=== PATIENT | male | born 1945 | race Caucasian/White ===

== ENCOUNTER 2020-07-28 10:46 | Outpatient (CLI) | payer MEDICARE, SELFPAY ==
--- NOTE | 2020-07-28 10:59 | XR_ITS ---
WS: [id number] Exam: XR chest 2V* [id number] Date/Time of Exam: 07/28/2020 11:10 AM Reason For Exam: dyspnea - rule out pneumonia No priors. The lungs are hyperinflated and clear. Unremarkable cardiomediastinal silhouette. Regional bony eleme nts are intact. No pleural effusions. XR/XR chest 2V* [id number] IMPRESSION: 1. Pulmonary hyperinflation. No acute process.
== END 2020-07-28 10:47 | disposition home or self-care (01) ==
PROVIDERS: Visit Provider Internal Medicine Pulmonary Disease
DX: R06.00 Dyspnea, unspecified (principal)
CPT/HCPCS: 71046

== ENCOUNTER 2021-02-01 00:06 | Inpatient (IN) | payer MEDICARE, SELFPAY ==
[2021-02-01] VITALS (19 sets, daily range): BP systolic 131–193; BP diastolic 60–88; PULSE 70–118; RESP 14–178; TEMP 36.8–37.3; O2SAT 89–98; BMI 40.6; BMI 40.0
--- NOTE | 2021-02-01 00:09 | ECG_ITS ---
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
--- NOTE | 2021-02-01 00:09 | XRR_ITS ---
PROCEDURE INFORMATION: Exam: XR Chest Exam date and time: 02/01/2021 12:09 AM Age: 75 years old Clinical indication: Dyspnea; Additional info: SOB TECHNIQUE: Imaging protocol: XR of the chest. Views: 1 view. COMPARISON: CR XR chest 2V* [id number] 07/28/2020 11:12 AM FINDINGS: Lungs: There is a background of emphysema and mild pulmonary fibrosis. There is mild prominence and indistinctness of the pulmonary vasculature. There are some increased peribronchial markings present bilaterally and some increased interstitial opacity seen in the lower hemithoraces, findings could represent mild pulmonary edema. Pleural spaces: Unremarkable. No pleural effusion. No pneumothorax. Heart/Mediastinum: Unremarkable. No cardiomegaly. Bones/joints: Unremarkable. XR/XR chest 1V portable [id number] IMPRESSION: 1. Mild prominence and indistinctness of the pulmonary vasculature, mild peribronchial cuffing and increased interstitial opacities in the lower hemithoraces, findings that suggest pulmonary edema. 2. There is a background of emphysema and pulmonary fibrosis. Radiation Dose CTDIVOL = (mGy): DLP = (mGy-cm)
--- NOTE | 2021-02-01 00:29 | W.ED.SOB ---
HPI - SOB/Dyspnea General: Chief Complaint: Shortness of Breath/Dyspnea Stated Complaint: sob Source: patient Mode of arrival: ambulatory Limitations: no limitations History of Present Illness: HPI Narrative: 75-year-old male has known history of COPD states he stepped on 2 L oxygen at home he states he is having increased shortness of breath tonight he states he has had cough congestion and increasing shortness of breath\3 days. Much worse tonight. He states he was on multiple breathing treatments with no improvement EMS arrived had to turn his oxygen up to 3%. He denies any fever denies any chest pain. Denies any sick contacts. Associated symptoms: Deny abdominal pain, chest pain, fever(s), nausea or vomiting Review of Systems Const: Denies: fever(s), chills, body aches or change in appetite Eyes: Denies: blurry vision or eye discomfort ENMT: Denies: throat pain or dental pain Card: Denies: chest pain Resp: Reports: dyspnea, non-productive cough and wheezing GI: Denies: abdominal pain, nausea, vomiting or diarrhea : Denies: dysuria Musc: Denies: neck pain or back pain Skin/Breast: Denies: rash Neuro: Denies: headache(s) Psych: Denies: depression Delgado/Lymph: Denies: easy bruising All/Imm: Denies: urticaria PFSH ED PFSH: Medical History 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 Dyspnea Emphysema/COPD Right-sided abdominal pain of unknown etiology Right-sided thoracic back pain Surgical History H/O left knee surgery History of back surgery Family History Mother Cancer Social History Quit status (tobacco): has quit using tobacco Year quit tobacco: 2007 [id number] Second hand smoke exposure: Yes Smoking risk assessment/counseling performed?: Yes Alcohol intake: former Caregiver/support person: No Lives independently: Yes Household members: significant other and friend(s) Housing: House Marital status: service: No Current occupational status: retired Pets and animals: Yes History of recent travel: No Current gender identity: Male Physical Exam Const: COMMON NORMALS: no acute distress, patient oriented x3 and healthy appearing HENMT: COMMON NORMALS: normocephalic and atraumatic HEAD & SCALP: normocephalic and atraumatic Eye: COMMON NORMALS: Equal, round and reactive pupils present and EOMs intact bilaterally PUPIL: Yes Equal, round and reactive pupils present Neck/C-Spine: COMMON NORMALS: full ROM and supple Chest: COMMONS NORMALS: normal inspection of the chest and normal palpation of entire chest wall Resp: COMMON NORMALS: No retractions EFFORT & INSPECTION: Yes tachypneic AUSCULTATION: wheezes Cardio: COMMON NORMALS: regular rate, regular rhythm and No murmurs present (Cardio) RATE: regular rate RHYTHM: regular rhythm GI: COMMON NORMALS: Normal to inspection, nondistended, normoactive bowel sounds present, Soft to palpation, non-tender and no masses PALPATION: Yes Soft to palpation Extremity: COMMON NORMALS: normal to inspection and full ROM Neuro: COMMON NORMALS: patient oriented x3, moves all extremities and no focal motor deficits Psych: COMMON NORMALS: mental status grossly normal, Normal thought process present and cooperative THOUGHT PROCESS: Normal thought process present Skin: COMMON NORMALS: no rashes or lesions noted and no wounds GENERAL SKIN EXAM: no rashes or lesions noted Course Vital Signs: Vital signs: Vital Signs Temperature 99.2 F 02/01/21 00:06 Pulse Rate 95 02/01/21 02:19 Respiratory Rate 20 H 02/01/21 02:19 Blood Pressure 181/88 02/01/21 02:19 Pulse Oximetry 96 02/01/21 02:19 MDM - SOB/Dyspnea MDM Narrative: Medical decision making narrative: Patient presents here with a COPD exacerbation he did have hypercapnia which required BiPAP he is improving on BiPAP no signs of pneumonia spoke to hospitalist and will admit at this time. Lab Data: Labs: Lab Results 02/01/21 02/01/21 02/01/21 00:42 00:45 00:45 WBC 12.2 10^3/uL H 10 ^3/uL (4.0-10.0) RBC 4.53 10^6/uL 10^6 /uL (4.1-5.3) Hgb 13.3 g/dL g/dL (11.7-16.6) Hct 43.3 % % (42.0-52.0) MCV 95.6 fl H fl (80-94) MCH 29.4 pg pg (28.0-34.0) MCHC 30.7 g/dL g/dL (30.0-36.0) RDW 12.7 % % (12.1-15.1) Plt Count 260 10^3/cmm 10^3 /cmm (130-400) MPV 10.0 fL fL (7.4-10.4) Neut % (Auto) 72.3 % % Lymph % (Auto) 13.2 % % Independence % (Auto) 13.1 % % Eos % (Auto) 0.4 % % Baso % (Auto) 0.6 % % Neut # (Auto) 8.80 10^3/uL H 10 ^3/uL (1.8-7.7) Lymph # (Auto) 1.6 10^3/uL 10^3/ uL (0.8-4.8) Independence # (Auto) 1.6 10^3/uL H 10^ 3/uL (0.2-0.9) Eos # (Auto) 0.1 10^3/uL 10^3/ uL (0.0-0.8) Baso # (Auto) 0.1 10^3/uL 10^3/ uL (0.0-0.1) Nucleated RBC % (a uto) 0 % % Nucleated RBCs # 0.0 /100WBC /100W BC Specimen Type Arterial Sample Site Radial, left ABG pH 7.24 L (7.35-7.45) ABG pCO2 80.1 mmHg H* mmHg (35-45) ABG pO2 96.9 mmHg mmHg (80.0-100.0) ABG HCO3 34.0 mmol/L H mmo l/L (22-26) ABG Base Excess 3.9 mmol/L H mmol /L (-2.0-2.0) Freeman Test Pos Hematocrit 41.7 % L % (42-52) Hgb O2 Saturation 95.6 % % (95-100) Carboxyhemoglobin 1.1 %THgb %THgb (0.4-20.1) Methemoglobin 0.6 % % (0.4-1.5) Total Hemoglobin 13.6 g/dL L g/dL (14-18) O2 Delivery Device Nc O2 Liters/Min 6.0 % % FiO2 44.0 % % Brine Tank Separator Operator ID glc Blood Gas Notified Time Sodium 139 mmol/L mmol/L (136-145) Potassium 4.2 mmol/L mmol/L (3.5-5.1) Chloride 98 mmol/L mmol/L (98-107) Carbon Dioxide 32 mmol/L H mmol/ L (22-29) Anion Gap 13.2 (5-19) BUN 18 mg/dL mg/dL (8-23) Creatinine 0.8 mg/dL mg/dL (0.7-1.2) GFR Calculation Not Reportable Glucose 165 mg/dL H mg/dL (65-115) Calculated Osmolal ity 294 mOsm/kg mOsm/ kg (285-295) Calcium 9.6 mg/dL mg/dL (8.5-10.5) Total Bilirubin 0.4 mg/dL mg/dL (0.15-1.2) AST 16 U/L U/L (0-40) ALT 29 U/L U/L (0-41) Alkaline Phosphata se 78 IU/L IU/L (40-130) NT-Pro-B Natriuret Pep 153 pg/mL H pg/mL (0-125) Total Protein 7.3 g/dL g/dL (6.6-8.7) Albumin 3.9 g/dL g/dL (3.5-5.2) Globulin 3.4 g/dL g/dL (1.3-4.6) SARS-CoV-2 Ag (Rap id) 02/01/21 02/01/21 01:10 02:08 WBC RBC Hgb Hct MCV MCH MCHC RDW Plt Count MPV Neut % (Auto) Lymph % (Auto) Independence % (Auto) Eos % (Auto) Baso % (Auto) Neut # (Auto) Lymph # (Auto) Independence # (Auto) Eos # (Auto) Baso # (Auto) Nucleated RBC % (a uto) Nucleated RBCs # Specimen Type Arterial Sample Site Radial, right ABG pH 7.26 L (7.35-7.45) ABG pCO2 74.3 mmHg H* mmHg (35-45) ABG pO2 117.0 mmHg H mmHg (80.0-100.0) ABG HCO3 33.5 mmol/L H mmo l/L (22-26) ABG Base Excess 3.9 mmol/L H mmol /L (-2.0-2.0) Freeman Test Pos Hematocrit 42.9 % % (42-52) Hgb O2 Saturation Carboxyhemoglobin Methemoglobin Total Hemoglobin O2 Delivery Device Bipap O2 Liters/Min FiO2 40.0 % % Brine Tank Separator Operator ID glc Blood Gas Notified Time 023 Sodium Potassium Chloride Carbon Dioxide Anion Gap BUN Creatinine GFR Calculation Glucose Calculated Osmolal ity Calcium Total Bilirubin AST ALT Alkaline Phosphata se NT-Pro-B Natriuret Pep Total Protein Albumin Globulin SARS-CoV-2 Ag (Rap id) Negative (Negative) Imaging Data^: CXR: Attestation: I personally reviewed and interpreted this imaging study as follows: My impression: no acute abnormality EKG Data^: EKG 1: Attestation: I personally reviewed and interpreted this EKG as follows: EKG Interpretation Date: 02/01/21 EKG interpretation time: : Interpretation: nsr hr [address] or t wave abnormalities [id number] qtc 380 Critical Care Time Critical Care Time: Critical Care Time: Yes Total Critical Care Time: 35 Attestation: The high probability of a clinically significant, sudden or life threatening deterioration of the patient's [] system(s) required my full and direct attention, intervention and personal management. The critical care time is as shown. This time is in addition to time spent performing any reported procedures but includes the following: [x] Data and vital sign review and interpretation [x] Patient assessment, examination and intervention [x] Documentation [x] Medication orders and management Discharge Plan Discharge Patient Disposition: Admitted As Inpatient Clinical Impression: Acute exacerbation of chronic obstructive airways disease Condition: Stable Coding Level of Care Code ED Religion Professor for Chg Fwd Exam Comprehensive
[2021-02-01 00:51] LABS: ABG PH Result 7.24 (7.35-7.45); Arterial Blood Gas Hematocrit 41.7 % (42-52); Base Excess ABG 3.9 mmol/L (-2.0-2.0); Blood Gas Allen Test Pos; Blood Gas Operator Identificat glc; Blood Gas Sample Site Radial, left; Blood Gas Sample Type Arterial; Carboxyhemoglobin 1.1 %THgb (0.4-20.1); HGB O2 Sat 95.6 % (95-100); Methemoglobin 0.6 % (0.4-1.5); Oxygen Device NC; PO2 ABG 96.9 mmHg (80.0-100.0); Total Hemoglobin 13.6 g/dL (14-18)
[2021-02-01 00:52] LABS: ABG PCO2 80.1 mmHg (35-45)
[2021-02-01 01:13] LABS: Basophils # 0.1 10^3/uL (0.0-0.1); Basophils % 0.6 %; Eosinophils # 0.1 10^3/uL (0.0-0.8); Eosinophils % 0.4 %; Hematocrit 43.3 % (42.0-52.0); Hemoglobin 13.3 g/dL (11.7-16.6); Lymphocytes # 1.6 10^3/uL (0.8-4.8); Lymphocytes % 13.2 %; Mean Corpuscular HGB Conc 30.7 g/dL (30.0-36.0); Mean Corpuscular Hemoglobin 29.4 pg (28.0-34.0); Mean Corpuscular Volume 95.6 fl (80-94); Monocytes # 1.6 10^3/uL (0.2-0.9); Monocytes % 13.1 %; Neutrophils % 72.3 %; Nucleated Red Blood Cells % 0 %; Platelet Count 260 10^3/cmm (130-400); Red Blood Count 4.53 10^6/uL (4.1-5.3); Red Cell Distribution Width 12.7 % (12.1-15.1); White Blood Count 12.2 10^3/uL (4.0-10.0)
[2021-02-01 01:30] LABS: SARS Covid-2 Antigen Negative (Negative)
[2021-02-01 01:37] LABS: Alanine Aminotransferase 29 U/L (0-41); Albumin Level 3.9 g/dL (3.5-5.2); Alkaline Phosphatase 78 IU/L (40-130); Anion Gap 13.2 (5-19); Aspartate Amino Transferase 16 U/L (0-40); Blood Urea Nitrogen 18 mg/dL (8-23); Calcium 9.6 mg/dL (8.5-10.5); Carbon Dioxide 32 mmol/L (22-29); Chloride 98 mmol/L (98-107); Globulin 3.4 g/dL (1.3-4.6); Glucose 165 mg/dL (65-115); NT Pro B Type Natriuretic Pept 153 pg/mL (0-125); Osmolality Calculated 294 mOsm/kg (285-295); Potassium 4.2 mmol/L (3.5-5.1); Sodium 139 mmol/L (136-145); Total Bilirubin 0.4 mg/dL (0.15-1.2); Total Protein 7.3 g/dL (6.6-8.7)
[2021-02-01 02:17] LABS: ABG PH Result 7.26 (7.35-7.45); Arterial Blood Gas Hematocrit 42.9 % (42-52); Base Excess ABG 3.9 mmol/L (-2.0-2.0); Blood Gas Allen Test Pos; Blood Gas Operator Identificat glc; Blood Gas Sample Site Radial, right; Blood Gas Sample Type Arterial; HCO3 ABG 33.5 mmol/L (22-26); Oxygen Device BIPAP
[2021-02-01 02:22] LABS: ABG PCO2 74.3 mmHg (35-45)
--- NOTE | 2021-02-01 07:03 | PC.NURSE ---
Introduced myself to the patient.
--- NOTE | 2021-02-01 08:07 | PC.PHAR ---
pt states he takes care of his own medications-pt verified medications
[2021-02-01] MEDS: D5-NS 0.45% + KCL 20 mEq 20 MEQ/1,000 ML BAG 125 MEQ IV (08:38)
--- NOTE | 2021-02-01 08:46 | P.HP_ITS ---
Providers/Chief Complaint Admitting Physician: Bob Biswas MD Chief Complaint: sob History of Present Illness Anil Worley is a 75 year old male who presents to the hospital with 3 days of cough, shortness of breath. He reports he has some chest discomfort on the right when he coughs hard. He has been producing some sputum. He has had no vomiting or diarrhea. He denies any personal history of Covid, Covid vaccination, or exposure to anybody with Covid. He reports he normally uses 1 L of oxygen but has had to increase to 3 L lately. He was placed on BiPAP in the emergency department. He received Solu-Medrol 125 mg IV in route. I believe he received some terbutaline or indoor albuterol as well. He reports he is feeling better. Review of Systems General: Reports: 10 or more systems reviewed and unremarkable except in HPI and below Const: Denies: fever(s) or chills Eyes: Denies: change in vision ENMT: Denies: throat pain Card: Reports: chest pain Resp: Reports: dyspnea and productive cough GI: Denies: abdominal pain : Denies: flank pain Musc: Denies: neck pain Skin/Breast: Denies: rash Neuro: Denies: headache(s) Psych: Denies: anxiety or depression Endo: Denies: polyuria Delgado/Lymph: Denies: easy bruising All/Imm: Denies: urticaria Medications/Allergies Home Medications Medication Instructions Recorded Confirmed Last Taken Type albuterol sulfate 90 mcg/actuation 2 puff INHALATION Q6H PRN 07/28/20 02/01/21 Unknown History aerosol inhaler budesonide 0.5 mg/2 mL suspension 0.5 mg INHALATION BID 07/28/20 02/01/21 Unknown History for nebulization albuterol sulfate 2.5 mg INHALATION Q4H PRN #90 ml 10/15/20 02/01/21 Unknown Rx fluticasone 250 mcg-salmeterol 50 1 inh INHALATION BID #60 ea 01/20/21 02/01/21 Unknown Rx mcg/dose blistr powdr for inhalation amlodipine 5 mg PO DAILY@18 02/01/21 02/01/21 Unknown History aspirin [Aspir-81] 81 mg PO DAILY@18 02/01/21 02/01/21 Unknown History gabapentin 300 mg PO TID 02/01/21 02/01/21 Unknown History ibuprofen 400 mg PO QID PRN 02/01/21 02/01/21 Unknown History oxycodone-acetaminophen 1 tab PO QID PRN 02/01/21 02/01/21 Unknown History Allergies Allergy/AdvReac Type Severity Reaction Status Date / Time Iodine and Iodide Containing Allergy Unknown Verified 02/01/21 08:07 Produc PFSH Acute PFSH: Medical History 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 Dyspnea Emphysema/COPD Right-sided abdominal pain of unknown etiology Right-sided thoracic back pain Surgical History H/O left knee surgery History of back surgery Family History Mother Cancer Social History Quit status (tobacco): has quit using tobacco Year quit tobacco: 2007 [id number] Second hand smoke exposure: Yes Smoking risk assessment/counseling performed?: Yes Alcohol intake: former Caregiver/support person: No Lives independently: Yes Household members: significant other and friend(s) Housing: House Marital status: service: No Current occupational status: retired Pets and animals: Yes History of recent travel: No Current gender identity: Male Vitals/I&O/Wt Last Vital Signs Temp 99.2 F 02/01/21 00:06 Pulse 97 02/01/21 06:07 Resp 22 H 02/01/21 04:13 BP 141/84 02/01/21 04:13 Pulse Ox 95 02/01/21 06:07 Weight last 48 hrs Weight 124.738 kg Physical Exam Narrative: EXAM NARRATIVE: General exam is a white male, on BiPAP, who is difficult to understand secondary to this. HEENT: Pupils equally round. Oropharynx clear. Neck is supple no lymphadenopathy thyromegaly Cardiovascular regular rate and rhythm, no murmur Lungs diminished breath sounds bilaterally but no wheezes Abdomen is soft with positive bowel sounds. No obvious organomegaly exam is deferred Extremities no cyanosis clubbing or edema, cap refill brisk Skin no rash Neuro no obvious focal deficits. Data : 02/01/21 00:45 02/01/21 00:45 Other data: Initial ABG demonstrates pH 7.26, PCO2 74, PO2 of 117 on BiPAP with 40% FiO2. This is slightly improved from previous ABG CMP demonstrates normal LFTs Glucose elevated 165 BNP 153 Rapid Covid negative Chest x-ray demonstrated vascular prominence, question pulmonary edema. Background emphysema is noted EKG demonstrates sinus rhythm, left axis deviation, nonspecific ST-T wave depression/flattening V3 through 6, rate of 99 A&P Assessment and plan (1) Acute exacerbation of chronic obstructive airways disease: IV steroids Pulmonary toilet Associated with acute hypoxic respiratory failure requiring BiPAP. Wean BiPAP as tolerated. I discussed not smoking with the patient. Status: Acute (2) Acute bronchitis: Doxycycline 100 mg twice daily Check Covid PCR, rapid negative Status: Acute (3) Chest pain: Check troponin. I suspect this is musculoskeletal. He reports that his with coughing. Status: Acute (4) HTN (hypertension): Continue Norvasc Status: Acute Qualifiers: Hypertension type: unspecified Qualified Code(s): I10 - Essential (primary) hypertension (5) Hyperglycemia: Check hemoglobin A1c Status: Acute Additional A&P Information Tobacco dependency. Encouraged him not to smoke. History of chronic neuropathic pain. On Neurontin. Full code Lovenox for DVT prophylaxis Attestations Medical Necessity Statement*: Will need greater than 2 midnight stay secondary to acute COPD exacerbation with acute respiratory failure requiring BiPAP. Time Spent in Patient Care: Greater than 35 minutes Coding Level of Care Code Acute Human Resources Operations Manager for [facility] Fwd Diagnoses Acute exacerbation of chronic obstructive airways disease J44.1 Acute bronchitis J20.9 Chest pain R07.9 HTN (hypertension) I10 Hypertension type: unspecified Hyperglycemia R73.9
--- NOTE | 2021-02-01 08:51 | PC.NURSE ---
Pt refused to let me swab the other nostril. Per provider, water was provided.
[2021-02-01] MEDS: gabapentin 300 mg Capsule PO ×3 (09:27→21:17)
[2021-02-01] MEDS: enoxaparin 40 mg/0.4 mL Syringe SUBCUT (09:28)
[2021-02-01] MEDS: doxycycline 100 mg Tablet PO ×2 (09:28→21:17)
[2021-02-01] MEDS: budesonide 0.5 mg/2 mL Neb INHALATION ×2 (09:31→21:18)
[2021-02-01 09:32] LABS: Troponin T (5th) Once 9 ng/L (0-15)
--- NOTE | 2021-02-01 09:32 | PC.NURSE ---
Pt vitals are: 141/61, 94 HR, 21 RR, 96% BIPAP 98.7 temp
[2021-02-01 09:53] LABS: Estmated Average Glucose 114; Hemoglobin A1C 5.6 % (4.0-6.0)
--- NOTE | 2021-02-01 11:17 | PC.NURSE ---
this nurse stopped the potassium infusion and flushed with 10 ml before and after administeration.
[2021-02-01] MEDS: ipratropium-albuterol 3 mL Neb INHALATION ×3 (12:45→21:18)
--- NOTE | 2021-02-01 16:11 | PC.RESP ---
PULMONARY REHAB INFORMATION SENT TO PATIENT.
--- NOTE | 2021-02-01 16:12 | PC.RESP ---
PULMONARY REHAB INFORMATION SENT TO PATIENT.
--- NOTE | 2021-02-01 18:03 | PC.NURSE ---
Called and gave report to Trish ZAMORA.
[2021-02-01] MEDS: aspirin 81 mg EC Tablet PO (21:17)
[2021-02-01] MEDS: amlodipine 5 mg Tablet PO (21:17)
--- NOTE | 2021-02-01 23:41 | PC.NURSE ---
ivp solumedrol for primary nurse
[2021-02-02] VITALS (17 sets, daily range): BP systolic 118–184; BP diastolic 64–87; PULSE 73–93; RESP 16–21; TEMP 36.4–36.7; O2SAT 86–98
[2021-02-02] MEDS: ipratropium-albuterol 3 mL Neb INHALATION ×6 (04:31→20:13)
[2021-02-02 06:20] LABS: Basophils % 0.1 %; Hematocrit 40.3 % (42.0-52.0); Hemoglobin 12.5 g/dL (11.7-16.6); Lymphocytes # 0.7 10^3/uL (0.8-4.8); Lymphocytes % 6.8 %; Mean Corpuscular Hemoglobin 29.8 pg (28.0-34.0); Mean Corpuscular Volume 96.2 fl (80-94); Mean Platelet Volume 10.2 fL (7.4-10.4); Monocytes # 0.5 10^3/uL (0.2-0.9); Monocytes % 5.2 %; Neutrophils # 8.75 10^3/uL (1.8-7.7); Neutrophils % 87.4 %; Nucleated Red Blood Cells % 0 %; Platelet Count 306 10^3/cmm (130-400); Red Blood Count 4.19 10^6/uL (4.1-5.3); Red Cell Distribution Width 12.5 % (12.1-15.1)
[2021-02-02 06:48] LABS: Alanine Aminotransferase 24 U/L (0-41); Albumin Level 3.6 g/dL (3.5-5.2); Alkaline Phosphatase 66 IU/L (40-130); Anion Gap 13.1 (5-19); Aspartate Amino Transferase 17 U/L (0-40); Blood Urea Nitrogen 30 mg/dL (8-23); Calcium 9.6 mg/dL (8.5-10.5); Carbon Dioxide 31 mmol/L (22-29); Chloride 100 mmol/L (98-107); Globulin 3.3 g/dL (1.3-4.6); Glucose 185 mg/dL (65-115); Osmolality Calculated 299 mOsm/kg (285-295); Potassium 5.1 mmol/L (3.5-5.1); Sodium 139 mmol/L (136-145); Total Bilirubin 0.3 mg/dL (0.15-1.2); Total Protein 6.9 g/dL (6.6-8.7)
[2021-02-02] MEDS: enoxaparin 40 mg/0.4 mL Syringe SUBCUT (07:47)
[2021-02-02] MEDS: doxycycline 100 mg Tablet PO ×2 (07:48→18:12)
[2021-02-02] MEDS: gabapentin 300 mg Capsule PO ×3 (07:48→21:34)
[2021-02-02] MEDS: budesonide 0.5 mg/2 mL Neb INHALATION ×2 (08:18→20:13)
--- NOTE | 2021-02-02 09:18 | P.PN_ITS ---
Subjective Subjective: Interval history: Anil reports he feels better than he did on admission, but is still having some shortness of breath. Still wheezing, especially when he takes the BiPAP off. He is still on BiPAP this morning. Medications: Reviewed: Yes Vitals/I&O/Wt Last Vital Signs Temp 97.6 F 02/02/21 08:00 Pulse 92 02/02/21 08:22 Resp 18 02/02/21 08:22 BP 118/64 02/02/21 08:00 Pulse Ox 86 L 02/02/21 08:22 02/01/21 02/02/21 02/02/21 22:59 06:59 14:59 Intake Total 440 / 1156.667 Output Total 860 / 860 Balance -420 / 296.667 Weight last 48 hrs Weight 119.476 kg Weight 124.738 kg Physical Exam Narrative: EXAM NARRATIVE: General exam is a white male, on BiPAP, Neck is supple no lymphadenopathy thyromegaly Cardiovascular regular rate and rhythm, no murmur Lungs a few bilateral lower lobe wheezes Abdomen is soft with positive bowel sounds. No obvious organomegaly Extremities no cyanosis clubbing or edema, cap refill brisk Data : 02/02/21 06:05 02/02/21 06:05 A&P Assessment and plan (1) Acute exacerbation of chronic obstructive airways disease: Continue IV steroids Continue pulmonary toilet Associated with acute hypoxic respiratory failure requiring BiPAP. Wean BiPAP off as tolerated. Try to keep saturation 88 to 92% I discussed not smoking with the patient. Status: Acute (2) Acute bronchitis: Continue doxycycline 100 mg twice daily Await Covid PCR, rapid negative Status: Acute (3) Chest pain: Check troponin. I suspect this is musculoskeletal. He reports that his with coughing. Troponin was not elevated Status: Acute (4) HTN (hypertension): Continue Norvasc Status: Acute Qualifiers: Hypertension type: unspecified Qualified Code(s): I10 - Essential (primary) hypertension (5) Hyperglycemia: Check hemoglobin A1c. Hemoglobin A1c was not elevated Status: Acute Additional A&P Information Tobacco dependency. Encouraged him not to smoke. History of chronic neuropathic pain. On Neurontin. Full code Lovenox for DVT prophylaxis Attestations Medical Necessity Statement*: Needs continued hospitalization for further IV steroids, pulmonary toilet secondary to COPD exacerbation. Coding Level of Care Code Acute Paving Supervisor for [facility] Fwd Diagnoses Acute exacerbation of chronic obstructive airways disease J44.1 Acute bronchitis J20.9 Chest pain R07.9 HTN (hypertension) I10 Hypertension type: unspecified Hyperglycemia R73.9
[2021-02-02 15:31] LABS: Coronavirus Test Green County Not Detected
[2021-02-02] MEDS: amlodipine 5 mg Tablet PO (18:12)
[2021-02-02] MEDS: aspirin 81 mg EC Tablet PO (18:12)
[2021-02-03] VITALS (17 sets, daily range): BP systolic 146–157; BP diastolic 61–85; PULSE 63–86; RESP 12–22; TEMP 36.3–37.6; O2SAT 93–99
[2021-02-03] MEDS: ipratropium-albuterol 3 mL Neb INHALATION ×7 (00:25→23:30)
[2021-02-03] MEDS: budesonide 0.5 mg/2 mL Neb INHALATION ×2 (07:37→19:26)
[2021-02-03] MEDS: enoxaparin 40 mg/0.4 mL Syringe SUBCUT (08:15)
[2021-02-03] MEDS: gabapentin 300 mg Capsule PO ×3 (08:16→21:21)
[2021-02-03] MEDS: doxycycline 100 mg Tablet PO ×2 (08:16→17:12)
--- NOTE | 2021-02-03 13:58 | PM.PN ---
Subjective Subjective: Interval history: Anil reports he is better but still wheezing. Still some shortness of breath with any exertion. Used BiPAP again last night. He reports it is very effective to helping him rest, breathe better. Nursing put this back on him when he started having lethargy and twitching consistent with hypercarbia yesterday afternoon. Patient has interest in continuing treatment at discharge at night and as needed during the day. I think this could help him substantially, and reduce his hospitalizations. I discussed this with him in detail. Medications: Reviewed: Yes Vitals/I&O/Wt Last Vital Signs Temp 98.1 F 02/03/21 12:00 Pulse 63 02/03/21 12:00 Resp 22 H 02/03/21 12:00 BP 146/76 02/03/21 12:00 Pulse Ox 94 02/03/21 12:00 02/02/21 02/03/21 02/03/21 22:59 06:59 14:59 Output Total 150 / 150 800 / 950 Balance -150 / -150 -800 / -950 Weight last 48 hrs Weight 119.476 kg Physical Exam Narrative: EXAM NARRATIVE: General exam is a white male, mild respiratory distress off BiPAP on oxygen Neck is supple no lymphadenopathy thyromegaly Cardiovascular regular rate and rhythm, no murmur Lungs a few bilateral lower lobe wheezes Abdomen is soft with positive bowel sounds. No obvious organomegaly Extremities no cyanosis clubbing or edema, cap refill brisk Data : 02/02/21 06:05 02/02/21 06:05 A&P Assessment and plan (1) Acute exacerbation of chronic obstructive airways disease: Change IV steroids to p.o. Continue pulmonary toilet Associated with acute hypoxic respiratory failure requiring BiPAP. Wean BiPAP off as tolerated. Try to keep saturation 88 to 92% I believe he could have excellent benefit from BiPAP while sleeping, and as needed during the day. He had significant hypercarbia when he came in associated with respiratory acidosis. There is evidence that he has chronic respiratory failure and hypercarbia from his laboratory evaluation. BiPAP at home could reduce frequent hospitalizations. Overnight oximetry tonight, and hopefully we will be able to qualify him for BiPAP I discussed not smoking with the patient. Probable discharge home tomorrow if he continues to improve. Status: Acute (2) Acute bronchitis: Continue doxycycline 100 mg twice daily Await Covid PCR, rapid negative Status: Acute (3) Chest pain: Check troponin. I suspect this is musculoskeletal. He reports that his with coughing. Troponin was not elevated Status: Acute (4) HTN (hypertension): Continue Norvasc Status: Acute Qualifiers: Hypertension type: unspecified Qualified Code(s): I10 - Essential (primary) hypertension (5) Hyperglycemia: Check hemoglobin A1c. Hemoglobin A1c was not elevated Status: Acute Additional A&P Information Tobacco dependency. Encouraged him not to smoke. History of chronic neuropathic pain. On Neurontin. Full code Lovenox for DVT prophylaxis Attestations Medical Necessity Statement*: Needs continued hospitalization for further pulmonary toilet, secondary to COPD exacerbation which is improving. Coding Level of Care Code Acute Industrial Education Teacher for [facility] Rowena Diagnoses Acute exacerbation of chronic obstructive airways disease J44.1 Acute bronchitis J20.9 Chest pain R07.9 HTN (hypertension) I10 Hypertension type: unspecified Hyperglycemia R73.9
[2021-02-03] MEDS: aspirin 81 mg EC Tablet PO (17:13)
[2021-02-03] MEDS: amlodipine 5 mg Tablet PO (17:13)
[2021-02-04] VITALS (9 sets, daily range): BP systolic 118–162; BP diastolic 63–91; PULSE 58–65; RESP 12–20; TEMP 36.6–37; O2SAT 88–96
[2021-02-04] MEDS: ipratropium-albuterol 3 mL Neb INHALATION ×2 (04:08→07:50)
[2021-02-04] MEDS: budesonide 0.5 mg/2 mL Neb INHALATION (07:50)
--- NOTE | 2021-02-04 08:52 | PM.DCS ---
Discharge Providers Date of Admission: 02/01/21 04:19 Date of Discharge: February 04, 2021 Attending Provider at Admission: Maya Elizondo MD Attending Provider at Discharge: Bob Biswas MD Diagnoses at Discharge Discharge Diagnosis (1) Acute exacerbation of chronic obstructive airways disease: Status: Acute (2) Acute bronchitis: Status: Acute (3) Chest pain: Status: Acute (4) HTN (hypertension): Status: Acute Qualifiers: Hypertension type: unspecified Qualified Code(s): I10 - Essential (primary) hypertension (5) Hyperglycemia: Status: Acute Reason for Visit Reason for Visit: sob Hospital Course Hospital Course Anil presented to the hospital with coughing wheezing and shortness of breath. This was consistent with COPD exacerbation. He was placed in the hospital on IV steroids, pulmonary toilet, oral doxycycline, BiPAP. Symptoms have been going on 3 days. Troponin was checked, and not elevated. Covid PCR negative. During his hospital stay he gradually improved, and was able to be weaned off BiPAP during the day. He still use this at night, reporting it helped him significantly rest better. On admission he had significant hypercarbia, associated with respiratory failure, respiratory acidosis. He could benefit greatly from home BiPAP while sleeping, and as needed during the day. I discussed this with him, and he was eager to use this. An overnight oximetry was done day prior to discharge to try to get this approved as I think it could significantly reduce hospitalizations in the future. He will follow-up with his primary care provider as well as pulmonary. He will finish a course of prednisone, doxycycline Physical Exam Narrative: EXAM NARRATIVE: General exam no distress Neck is supple Cardiovascular regular rate and rhythm Lungs a few faint expiratory wheezes Abdomen is soft with positive bowel sounds Extremities no cyanosis clubbing or edema Discharge Data Data Completed and Pending: Completed Studies During Hospitalization Category Date Time Status XR chest 1V hossein ble 41092 Urgent Exams 02/01/21 00:09 Completed Vitals: Last Vital Signs Temp 98.1 F 02/04/21 08:00 Pulse 65 02/04/21 08:00 Resp 20 H 02/04/21 08:00 BP 162/91 02/04/21 08:00 Pulse Ox 96 02/04/21 08:00 Discharge Plan Discharge Patient Disposition: Home Condition: Stable Prescriptions: New doxycycline monohydrate 100 mg Tablet 100 mg PO BID Qty: 10 RF: 0 prednisone 20 mg Tablet 40 mg PO DAILY Qty: 8 RF: 0 ipratropium-albuterol 0.5 mg-3 mg(2.5 mg base)/3 mL solution for nebulization 3 ml inhalation Q6H Qty: 180 RF: 0 Continued budesonide 0.5 mg/2 mL suspension for nebulization 0.5 mg inhalation BID RF: 0 albuterol sulfate [Ventolin HFA] 90 mcg/actuation HFA aerosol inhaler 2 puff inhalation Q6H PRN (Reason: Shortness Of Breath) RF: 0 fluticasone propion-salmeterol [Advair Diskus] 250-50 mcg/dose blister with device 1 inh inhalation BID Qty: 60 RF: 3 Aspir-81 81 mg Tablet,Delayed Release (Dr/Ec) 81 mg PO DAILY@18 RF: 0 oxycodone-acetaminophen 5-325 mg tablet 1 tab PO QID PRN (Reason: Pain) RF: 0 gabapentin 300 mg capsule 300 mg PO TID RF: 0 amlodipine 5 mg tablet 5 mg PO DAILY@18 RF: 0 Discontinued albuterol sulfate 2.5 mg /3 mL (0.083 %) solution for nebulization 2.5 mg inhalation Q4H PRN (Reason: shortness of breath or wheezing) Qty: 90 RF: 3 ibuprofen 200 mg Tablet 400 mg PO QID PRN (Reason: Pain) RF: 0 Discharge Orders: Discharge Order (Routine); Ordered 02/04/21 Ordered By: Bob Biswas Other Ambulatory Orders: DME: BIPAP (Order) Location: None Selected Ordered By: Bob Biswas Referrals: Gatito Feliz MD [Physician] - 2 weeks Jonathan Chandler MD [Physician] - 4-7 days Discharge Diet: Regular Discharge Activity: Increase activity as tolerated Patient Instructions: Opioid Safety Activity Restrictions/Additional Instructions: Take all medicine as prescribed Follow-up with your primary care provider 3 to 5 days. Discharge Attestations Time Spent in Discharge Care*: greater than 30 min Quality Metrics Clinical Quality Measures During this hospital stay, did patient experience: None Coding Level of Care Code Acute Chg FW DC note Diagnoses Acute exacerbation of chronic obstructive airways disease J44.1 Acute bronchitis J20.9 Chest pain R07.9 HTN (hypertension) I10 Hypertension type: unspecified Hyperglycemia R73.9
[2021-02-04] MEDS: doxycycline 100 mg Tablet PO (08:56)
[2021-02-04] MEDS: predniSONE 20 mg Tablet 40 MG PO (08:56)
[2021-02-04] MEDS: gabapentin 300 mg Capsule PO (08:57)
--- NOTE | 2021-02-04 11:52 | PC.NURSE ---
patient verbalized understanding of discharge instructions, home medications, and follow up appointments. Pt was wheeled to private vehicle with his home oxygen.
--- NOTE | 2021-02-04 12:44 | PC.SOCIAL ---
IMM Update: pg 2 of IMM updated and reviewed w/ patient. Copy provided.
== END 2021-02-04 11:54 | disposition home or self-care (01) | DRG 190 ==
LOC: ER 03:07 → ER IP 05:31 → MEDSURG 15:06
PROVIDERS: Admitting Provider Hospitalist; Emergency Provider Emergency Medicine; Visit Provider Internal Medicine
DX: J43.9 Emphysema, unspecified (principal); J96.22 Acute and chronic respiratory failure with hypercapnia; J96.21 Acute and chronic respiratory failure with hypoxia; J20.9 Acute bronchitis, unspecified; G62.9 Polyneuropathy, unspecified; I10 Essential (primary) hypertension; R73.9 Hyperglycemia, unspecified; R07.9 Chest pain, unspecified; Z79.82 Long term (current) use of aspirin; Z79.891 Long term (current) use of opiate analgesic; Z87.891 Personal history of nicotine dependence
CPT/HCPCS: 36600; 71045; 80053; 82803; 82805; 83036; 83880; 84484; 85025; 87426; 87635; 93005; 94640; 94660; 94762; 96365; 96366; 96372; 96375; 97116; 97161; 99291; J1650; J2930; J7512; J7611; J7626

== ENCOUNTER 2024-03-12 04:13 | Emergency (ER) | payer MEDICARE, SELFPAY ==
[2024-03-12] VITALS (10 sets, daily range): BP systolic 95–197; BP diastolic 52–92; PULSE 66–109; RESP 17–34; TEMP 38; O2SAT 97–99; BMI 36.9
--- NOTE | 2024-03-12 04:19 | ECG_ITS ---
[facility] Test Date: 2024-03-12 Pat Name: Anil Worley Department: Room: Gender: Male [employer]: : 1945 Requested By: Efra Ochoa Order Number: [id number] Smith MD: Mahesh Agnuiano M.D. Measurements Intervals [place] Rate: 106 P: 80 UT: 116 QRS: -37 QRSD: 85 T: 82 QT: 287 QTc: 382 Interpretive Statements SINUS TACHYCARDIA WITH SHORT UT INTERVAL POSSIBLE LEFT ATRIAL ENLARGEMENT [-0.1mV P-WAVE IN V1/V2] LEFT AXIS DEVIATION [QRS AXIS < -30] POSSIBLE RIGHT VENTRICULAR CONDUCTION DELAY [RSR (QR) IN V1/V2] NONSPECIFIC ST & T-WAVE ABNORMALITY INTERPRETATION BASED ON A DEFAULT AGE OF 40 YEARS Compared to ECG 02/01/2021 01:01:31 Short UT interval now present T-wave abnormality now present Sinus rhythm no longer present ST (T wave) deviation no longer present Electronically Signed On 03-12-2024 19:12:05 [employer] by Mahesh Anguiano M.D. [email or web address]
--- NOTE | 2024-03-12 04:19 | ED_ITS ---
Documented by User: Efra Ochoa DO 03/12/24 04:42 HPI - General Adult 2 General: Chief complaint: General Medical Stated complaint: AMS/FALL Time Seen by Provider: 03/12/24 04:15 Source: EMS Mode of arrival: EMS Limitations: altered mental status History of Present Illness: Patient brought in by EMS after a fall. Patient was found in between the bed and the dresser when he got to him and his O2 sat was 57% on room air. Patient is unresponsive patient was placed on nonrebreather at 15 L and his O2 sat increased to 97%. Patient's pulse is 109 with a temperature 100.4. He does have COPD and has oxygen at home but he did not have it on when he was found. Patient was incontinent of bowel and bladder. Related Data Previous Rx's Medication Instructions Recorded amlodipine 10 mg tablet 10 mg PO DAILY #90 tabs 09/30/22 aspirin 81 mg tablet,delayed 81 mg PO DAILY@18 #90 tabs 09/30/22 release budesonide 0.5 mg/2 mL suspension 0.5 mg (2 mL) inhalation BID #60 mL 09/30/22 for nebulization gabapentin 100 mg capsule 100 mg PO TID #90 caps 09/30/22 ipratropium 0.5 mg-albuterol 3 mg 3 ml inhalation Q6H #180 mL 09/30/22 (2.5 mg base)/3 mL nebulization soln tiotropium 2.5 mcg-olodaterol 2.5 2 puff inhalation DAILY #4 grams 05/23/23 mcg/actuation mist for inhalation (Stiolto Respimat) albuterol sulfate 90 mcg/actuation 2 puff inhalation Q6H PRN 06/29/23 aerosol inhaler (Ventolin HFA) Shortness Of Breath #8.5 grams Allergies Allergy/AdvReac Type Severity Reaction Status Date / Time Iodine and Iodide Containing Allergy Unknown Verified 03/12/24 04:21 Produc Review of Systems 2 General: Reports: ROS unobtainable due to endotracheal tube PFSH ED 2 PFSH: Medical History Claudication of both lower extremities Peripheral neuropathy Leg cramps, sleep related Hypercapnia Supplemental oxygen dependent HTN (hypertension) Obesity (BMI 30-39.9) Encounter for screening for lung cancer Emphysema/COPD Former smoker quit 2007 after 40+ years Surgical History H/O left knee surgery History of back surgery Family History Mother Cancer Social History Quit status (tobacco/nicotine): has quit using Year quit tobacco: 2007 [id number] Second hand smoke exposure: Yes Alcohol intake: former Substance/Drug Use: never Caregiver/support person: No Lives independently: Yes Household members: significant other and friend(s) Housing: House Marital status: service: No Current occupational status: retired Pets and animals: Yes Do you think of yourself as: Straight/Heterosexual Current gender identity: Male Physical Exam 2 Const: COMMON NORMALS: alert and well nourished; limitations (Only responsive did withdraw from painful stimuli) HENMT: COMMON NORMALS: normocephalic, Normal external nose present, Normal nasal mucous membranes and turbinates present, moist oral mucous membranes and oropharynx normal; dentition not normal (Very poor dentition) HEAD & SCALP: normocephalic N OSE: Normal external nose present and Normal nasal mucous membranes and turbinates present Eye: COMMON NORMALS: Equal, round and reactive pupils present, conjunctivae normal and no scleral icterus CONJUNCTIVA: Yes conjunctivae normal PUPIL: Yes Equal, round and reactive pupils present Neck/C-Spine: COMMON NORMALS: no JVD Resp: OTHER: Decreased breath sounds bilaterally Cardio: COMMON NORMALS: no JVD, regular rhythm, S1 normal heart sound present and S2 normal heart sound present; negative for regular rate (Mildly tachycardic) RATE: abnormal rate (Mildly tachycardic) RHYTHM: regular rhythm HEART SOUNDS: S1 normal heart sound present and S2 normal heart sound present GI: COMMON NORMALS: Normal to inspection, nondistended, normoactive bowel sounds present, Soft to palpation, non-tender, No hepatosplenomegaly present and no masses PALPATION: Yes Soft to palpation and Yes No hepatosplenomegaly present Neuro: SENSORIUM/ORIENTATION: Yes alert Procedures Intubation Time out performed: Yes sedative: Etomidate Mg Given: 20 paralytic: Succinylcholine Mg Given: 100 Laryngoscope: fiber optic video scope ET Tube Size: 8 Tube Secured Depth (cm): 20 Tube Secured Location: lips Tube Placement Confirmation: visualized tube passing through cords, equal breath sounds bilaterally and no breath sounds over epigastrium Patient Tolerated Procedure: well and no complications Course 2 Vital Signs: Vital signs: Vital Signs Temperature 100.4 F H 03/12/24 04:14 Pulse Rate 66 03/12/24 07:50 Respiratory Rate 19 H 03/12/24 07:50 Blood Pressure 126/90 03/12/24 07:50 Pulse Oximetry 99 03/12/24 07:50 Oxygen Delivery Me thod Mechanical Ventil ation 03/12/24 06:28 Fraction of Inspir ed Oxygen 60 03/12/24 04:52 [facility] - General Adult Lab Data 03/12/24 04:22 03/12/24 04:[address] 03/12/24 04:19 IMPRESSION: 1. Cortical atrophy. No hemorrhage mass effect or midline shift. 2. Indeterminate low-density lesion in the right temporal lobe. This may be related to previous injury or insult. Chest X-Ray 03/12/24 04:27 IMPRESSION: 1. Endotracheal tube at the level of the clavicular heads. This is 7.8 cm above the level of the kitty. Nasogastric tube within the stomach. 2. No acute pulmonary disease process Chest/Abdomen/Pelvis CT 03/12/24 04:35 IMPRESSION: Motion artifact somewhat limits evaluation. No acute intrathoracic abnormality. IMPRESSION: No acute abdominal or pelvic abnormality COMMENTS: Consistent with the [employer]'s Incidental Findings Committee white paper (J Am Noah Radiol 2018): Any incidental renal lesion less than 1 cm or classified as too small to characterize, or any incidental cystic renal lesion characterized as simple-appearing, is likely benign. No follow-up imaging is recommended for these lesions per consensus recommendations based on imaging criteria. Laboratory Results WBC 11.36 10^3/uL (3.29-11.43) 03/12/24 04:22 RBC 4.59 10^6/uL (3.85-5.65) 03/12/24 04:22 Hgb 13.30 g/dL (11.27-16.99) 03/12/24 04:22 Hct 42.7 % (37-53) 03/12/24 04:22 MCV 93.0 fl (82-101) 03/12/24 04:22 MCH 29.0 pg (27-33) 03/12/24 04:22 MCHC 31.1 g/dL (30-55) 03/12/24 04:22 RDW 12.9 % (12.1-15.1) 03/12/24 04:22 Plt Count 247 10^3/cmm (157-399) 03/12/24 04:22 MPV 10.4 fL (7.4-10.4) 03/12/24 04:22 Neut % (Auto) 69.6 % 03/12/24 04:22 Lymph % (Auto) 13.6 % 03/12/24 04:22 [place] % (Auto) 12.5 % 03/12/24 04:22 Eos % (Auto) 3.3 % 03/12/24 04:22 Baso % (Auto) 0.4 % 03/12/24 04:22 Neut # (Auto) 7.91 10^3/uL (1.8-7.7) H 03/12/24 04:22 Lymph # (Auto) 1.5 10^3/uL (0.8-4.8) 03/12/24 04:22 [place] # (Auto) 1.4 10^3/uL (0.2-0.9) H 03/12/24 04:22 Eos # (Auto) 0.4 10^3/uL (0.0-0.8) 03/12/24 04:22 Baso # (Auto) 0.1 10^3/uL (0.0-0.1) 03/12/24 04:22 Nucleated RBC % (auto) 0 % 03/12/24 04:22 Nucleated RBCs # 0.0 /100WBC 03/12/24 04:22 ESR 32 mm/hr (0-10) H 03/12/24 04:22 PT 13.50 SECONDS (12.1-14.9) 03/12/24 04:22 INR 1.00 (0.8-1.2) 03/12/24 04:22 Specimen Type Arterial 03/12/24 06:28 Sample Site Radial, right 03/12/24 06:28 ABG pH 7.33 (7.35-7.45) L 03/12/24 06:28 ABG pCO2 59.5 mmHg (35-45) H 03/12/24 06:28 ABG pO2 143.0 mmHg (80.0-100.0) H 03/12/24 06:28 ABG PO2/FiO2 Ratio 238 03/12/24 06:28 ABG HCO3 31.6 mmol/L (22-26) H 03/12/24 06:28 ABG O2 Saturation > 99.1 03/12/24 06:28 ABG Base Excess 4.2 mmol/L (-2.0-2.0) H 03/12/24 06:28 Freeman Test Pos 03/12/24 06:28 A-a O2 Gradient 27.4 mmHg (5-10) H 03/12/24 06:28 Hematocrit 38.8 % (42-52) L 03/12/24 06:28 Hgb O2 Saturation 97.7 % (95-100) 03/12/24 06:28 Carboxyhemoglobin 0.5 %THgb (0.4-20.1) 03/12/24 06:28 Methemoglobin 1.3 % (0.4-1.5) 03/12/24 06:28 Total Hemoglobin 12.7 g/dL (14-18) L 03/12/24 06:28 Sodium 139.0 mmol/L (131-143) 03/12/24 06:28 Potassium 4.6 mmol/L (3.5-5.0) 03/12/24 06:28 Glucose 134.0 mg/dL (70-115) H 03/12/24 06:28 Ionized Calcium 1.1 mmol/L (1.1-1.4) 03/12/24 06:28 O2 Delivery Device Vent 03/12/24 06:28 O2 Liters/Min 15.0 % 03/12/24 04:12 FiO2 60.0 % 03/12/24 06:28 Tidal Volume 0.50 03/12/24 06:28 PEEP 6.0 cmH20 03/12/24 06:28 Loans Officer ID Jdb 03/12/24 06:28 Sodium 138 mmol/L (136-145) 03/12/24 04:22 Potassium 4.9 mmol/L (3.5-5.1) 03/12/24 04:22 Chloride 97 mmol/L (98-107) L 03/12/24 04:22 Carbon Dioxide 30 mmol/L (22-29) H 03/12/24 04:22 Anion Gap 15.9 (5-19) 03/12/24 04:22 BUN 15 mg/dL (8-23) 03/12/24 04:22 Creatinine 1.1 mg/dL (0.7-1.2) 03/12/24 04:22 GFR Calculation Not Reportable 03/12/24 04:22 Glucose 252 mg/dL (65-115) H 03/12/24 04:22 Calculated Osmolality 295 mOsm/kg (285-295) 03/12/24 04:22 Lactic Acid 2.1 mmol/L (0.5-2.2) 03/12/24 04:22 Calcium 9.7 mg/dL (8.5-10.5) 03/12/24 04:22 Magnesium 2.1 mg/dL (1.7-2.3) 03/12/24 04:22 Total Bilirubin 0.4 mg/dL (0.15-1.2) 03/12/24 04:22 AST 23 U/L (0-40) 03/12/24 04:22 ALT 28 U/L (0-41) 03/12/24 04:22 Alkaline Phosphatase 94 U/L (40-130) 03/12/24 04:22 Creatine Kinase 150 U/L (39-308) 03/12/24 04:22 Creatine Kinase 157 U/L (39-308) 03/12/24 04:22 Troponin T Baseline 23 ng/L (0-15) H 03/12/24 04:22 Total Protein 7.4 g/dL (6.6-8.7) 03/12/24 04:22 Albumin 4.7 g/dL (3.5-5.2) 03/12/24 04:22 Globulin 2.7 g/dL (1.3-4.6) 03/12/24 04:22 Procalcitonin 0.21 ng/mL (0-0.5) 03/12/24 04:22 Prolactin 3.34 ng/mL (4.0-15.2) L 03/12/24 04:22 Prolactin Cancelled 03/12/24 04:22 Urine Color Yellow (Yellow) 03/12/24 04:43 Urine Appearance Clear (CLEAR) 03/12/24 04:43 Urine pH 6.0 (5-7) 03/12/24 04:43 Ur Specific [place] 1.017 (1.005-1.030) 03/12/24 04:43 Urine Protein 2+ (Negative) A 03/12/24 04:43 Urine Glucose (UA) 1+ (Normal) H 03/12/24 04:43 Urine Ketones Negative (Negative) 03/12/24 04:43 Urine Blood 2+ (Negative) A 03/12/24 04:43 Urine Nitrate Negative (Negative) 03/12/24 04:43 Urine Bilirubin Negative (Negative) 03/12/24 04:43 Urine Urobilinogen 1.0 mg/dL (Negative) 03/12/24 04:43 Ur Leukocyte Esterase Negative (Negative) 03/12/24 04:43 Urine RBC 5-10 /hpf (0-2) H 03/12/24 04:43 Urine WBC 0-4 /hpf (0-5) H 03/12/24 04:43 Ur Squamous Epith Cells 0-4 /hpf (0-5) H 03/12/24 04:43 Amorphous Sediment Not Reportable 03/12/24 04:43 Urine Bacteria Trace /hpf (NONE) 03/12/24 04:43 Hyaline Casts 0-4 /lpf H 03/12/24 04:43 Urine Mucus 2+ /hpf 03/12/24 04:43 Urine Opiates Screen Negative ng/mL (Negative) 03/12/24 04:43 Ur Barbiturates Screen Negative ng/mL (Negative) 03/12/24 04:43 Ur Phencyclidine Scrn Negative ng/mL (Negative) 03/12/24 04:43 Ur Amphetamines Screen Negative ng/mL (Negative) 03/12/24 04:43 U Benzodiazepines Scrn Negative ng/mL (Negative) 03/12/24 04:43 Urine Cocaine Screen Negative ng/mL (Negative) 03/12/24 04:43 U Marijuana (THC) Screen Negative ng/mL (Negative) 03/12/24 04:43 Coronavirus (PCR) Negative (Negative) 03/12/24 04:50 Influenza A (PCR) Positive (Negative) 03/12/24 04:50 Influenza Type B (PCR) Negative (Negative) 03/12/24 04:50 RSV (PCR) Negative (Negative) 03/12/24 04:50 Discharge Plan Discharge Patient Disposition: Transfer to ED Clinical Impression: Acute on chronic respiratory failure with hypoxia and hypercapnia, Acute exacerbation of chronic obstructive pulmonary disease Condition: Stable Prescriptions: No Action amlodipine 10 mg tablet 10 mg PO DAILY Qty: 90 1RF aspirin 81 mg tablet,delayed release (DR/EC) 81 mg PO DAILY@18 Qty: 90 1RF budesonide 0.5 mg/2 mL suspension for nebulization 0.5 mg inhalation BID Qty: 60 4RF ipratropium-albuterol 0.5 mg-3 mg(2.5 mg base)/3 mL solution for nebulization 3 ml inhalation Q6H Qty: 180 4RF gabapentin 100 mg capsule 100 mg PO TID Qty: 90 5RF Rx Instructions: Take 1 capsule every morning and 2 capsules at bedtime Stiolto Respimat 2.5-2.5 mcg/actuation mist 2 puff inhalation DAILY Qty: 4 3RF albuterol sulfate [Ventolin HFA] 90 mcg/actuation HFA aerosol inhaler 2 puff inhalation Q6H PRN (Reason: Shortness Of Breath) Qty: 8.5 3RF Sign Out Sign Out Data: Patient Sign Out occurred on 03/12/24 at 06:05. Patient's care was discussed, and care was transferred from Efra Ochoa DO to Christophe Bobby DO. Coding Level of Care Code ED Assistance Representative for Chg Fwd Documented by User: Christophe Bobby DO 03/12/24 08:02 HPI - General Adult 2 General: Chief complaint: General Medical Stated complaint: AMS/FALL Time Seen by Provider: 03/12/24 04:15 Related Data Previous Rx's Medication Instructions Recorded amlodipine 10 mg tablet 10 mg PO DAILY #90 tabs 09/30/22 aspirin 81 mg tablet,delayed 81 mg PO DAILY@18 #90 tabs 09/30/22 release budesonide 0.5 mg/2 mL suspension 0.5 mg (2 mL) inhalation BID #60 mL 09/30/22 for nebulization gabapentin 100 mg capsule 100 mg PO TID #90 caps 09/30/22 ipratropium 0.5 mg-albuterol 3 mg 3 ml inhalation Q6H #180 mL 09/30/22 (2.5 mg base)/3 mL nebulization soln tiotropium 2.5 mcg-olodaterol 2.5 2 puff inhalation DAILY #4 grams 05/23/23 mcg/actuation mist for inhalation (Stiolto Respimat) albuterol sulfate 90 mcg/actuation 2 puff inhalation Q6H PRN 06/29/23 aerosol inhaler (Ventolin HFA) Shortness Of Breath #8.5 grams Allergies Allergy/AdvReac Type Severity Reaction Status Date / Time Iodine and Iodide Containing Allergy Unknown Verified 03/12/24 04:21 Produc [facility] ED 2 PFSH: Medical History Claudication of both lower extremities Peripheral neuropathy Leg cramps, sleep related Hypercapnia Supplemental oxygen dependent HTN (hypertension) Obesity (BMI 30-39.9) Encounter for screening for lung cancer Emphysema/COPD Former smoker quit 2007 after 40+ years Surgical History H/O left knee surgery History of back surgery Family History Mother Cancer Social History Quit status (tobacco/nicotine): has quit using Year quit tobacco: 2007 [id number] Second hand smoke exposure: Yes Alcohol intake: former Substance/Drug Use: never Caregiver/support person: No Lives independently: Yes Household members: significant other and friend(s) Housing: House Marital status: service: No Current occupational status: retired Pets and animals: Yes Do you think of yourself as: Straight/Heterosexual Current gender identity: Male Course 2 Vital Signs: Vital signs: Vital Signs Temperature 100.4 F H 03/12/24 04:14 Pulse Rate 66 03/12/24 07:50 Respiratory Rate 19 H 03/12/24 07:50 Blood Pressure 126/90 03/12/24 07:50 Pulse Oximetry 99 03/12/24 07:50 Oxygen Delivery Me thod Mechanical Ventil ation 03/12/24 06:28 Fraction of Inspir ed Oxygen 60 03/12/24 04:52 MDM - General Adult Medical Decision Making Care assumed at change of shift labs reviewed. Repeat ABG. Patient given Solu- Medrol nebulizers also had a CPK. Blood pressure has been running right at 100. Some this may be the propofol. Clinically does not look fluid overloaded his chest x-ray does not show increased vascular congestion we will give him a liter of fluids and reevaluate he is having good urine output. We are working on transfer to [facility]. Chart reviewed. It was suggested the propofol. Talk to ER doc at [place] they have excepted as an ER to ER transfer will transfer via air ambulance due to length of transfer and patient being intubated. Antibiotics have been started. Repeat blood gas improved Medical Records I reviewed the patient's medical records. Lab Data I reviewed the patient's lab results. 03/12/24 04:22 03/12/24 04:[address] 03/12/24 04:19 IMPRESSION: 1. Cortical atrophy. No hemorrhage mass effect or midline shift. 2. Indeterminate low-density lesion in the right temporal lobe. This may be related to previous injury or insult. Chest X-Ray 03/12/24 04:27 IMPRESSION: 1. Endotracheal tube at the level of the clavicular heads. This is 7.8 cm above the level of the kitty. Nasogastric tube within the stomach. 2. No acute pulmonary disease process Chest/Abdomen/Pelvis CT 03/12/24 04:35 IMPRESSION: Motion artifact somewhat limits evaluation. No acute intrathoracic abnormality. IMPRESSION: No acute abdominal or pelvic abnormality COMMENTS: Consistent with the [employer]'s Incidental Findings Committee white paper (J Am Noah Radiol 2018): Any incidental renal lesion less than 1 cm or classified as too small to characterize, or any incidental cystic renal lesion characterized as simple-appearing, is likely benign. No follow-up imaging is recommended for these lesions per consensus recommendations based on imaging criteria. Laboratory Results WBC 11.36 10^3/uL (3.29-11.43) 03/12/24 04:22 RBC 4.59 10^6/uL (3.85-5.65) 03/12/24 04:22 Hgb 13.30 g/dL (11.27-16.99) 03/12/24 04:22 Hct 42.7 % (37-53) 03/12/24 04:22 MCV 93.0 fl (82-101) 03/12/24 04:22 MCH 29.0 pg (27-33) 03/12/24 04:22 MCHC 31.1 g/dL (30-55) 03/12/24 04:22 RDW 12.9 % (12.1-15.1) 03/12/24 04:22 Plt Count 247 10^3/cmm (157-399) 03/12/24 04:22 MPV 10.4 fL (7.4-10.4) 03/12/24 04:22 Neut % (Auto) 69.6 % 03/12/24 04:22 Lymph % (Auto) 13.6 % 03/12/24 04:22 [place] % (Auto) 12.5 % 03/12/24 04:22 Eos % (Auto) 3.3 % 03/12/24 04:22 Baso % (Auto) 0.4 % 03/12/24 04:22 Neut # (Auto) 7.91 10^3/uL (1.8-7.7) H 03/12/24 04:22 Lymph # (Auto) 1.5 10^3/uL (0.8-4.8) 03/12/24 04:22 [place] # (Auto) 1.4 10^3/uL (0.2-0.9) H 03/12/24 04:22 Eos # (Auto) 0.4 10^3/uL (0.0-0.8) 03/12/24 04:22 Baso # (Auto) 0.1 10^3/uL (0.0-0.1) 03/12/24 04:22 Nucleated RBC % (auto) 0 % 03/12/24 04:22 Nucleated RBCs # 0.0 /100WBC 03/12/24 04:22 ESR 32 mm/hr (0-10) H 03/12/24 04:22 PT 13.50 SECONDS (12.1-14.9) 03/12/24 04:22 INR 1.00 (0.8-1.2) 03/12/24 04:22 Specimen Type Arterial 03/12/24 06:28 Sample Site Radial, right 03/12/24 06:28 ABG pH 7.33 (7.35-7.45) L 03/12/24 06:28 ABG pCO2 59.5 mmHg (35-45) H 03/12/24 06:28 ABG pO2 143.0 mmHg (80.0-100.0) H 03/12/24 06:28 ABG PO2/FiO2 Ratio 238 03/12/24 06:28 ABG HCO3 31.6 mmol/L (22-26) H 03/12/24 06:28 ABG O2 Saturation > 99.1 03/12/24 06:28 ABG Base Excess 4.2 mmol/L (-2.0-2.0) H 03/12/24 06:28 Freeman Test Pos 03/12/24 06:28 A-a O2 Gradient 27.4 mmHg (5-10) H 03/12/24 06:28 Hematocrit 38.8 % (42-52) L 03/12/24 06:28 Hgb O2 Saturation 97.7 % (95-100) 03/12/24 06:28 Carboxyhemoglobin 0.5 %THgb (0.4-20.1) 03/12/24 06:28 Methemoglobin 1.3 % (0.4-1.5) 03/12/24 06:28 Total Hemoglobin 12.7 g/dL (14-18) L 03/12/24 06:28 Sodium 139.0 mmol/L (131-143) 03/12/24 06:28 Potassium 4.6 mmol/L (3.5-5.0) 03/12/24 06:28 Glucose 134.0 mg/dL (70-115) H 03/12/24 06:28 Ionized Calcium 1.1 mmol/L (1.1-1.4) 03/12/24 06:28 O2 Delivery Device Vent 03/12/24 06:28 O2 Liters/Min 15.0 % 03/12/24 04:12 FiO2 60.0 % 03/12/24 06:28 Tidal Volume 0.50 03/12/24 06:28 PEEP 6.0 cmH20 03/12/24 06:28 Loans Officer ID Jdb 03/12/24 06:28 Sodium 138 mmol/L (136-145) 03/12/24 04:22 Potassium 4.9 mmol/L (3.5-5.1) 03/12/24 04:22 Chloride 97 mmol/L (98-107) L 03/12/24 04:22 Carbon Dioxide 30 mmol/L (22-29) H 03/12/24 04:22 Anion Gap 15.9 (5-19) 03/12/24 04:22 BUN 15 mg/dL (8-23) 03/12/24 04:22 Creatinine 1.1 mg/dL (0.7-1.2) 03/12/24 04:22 GFR Calculation Not Reportable 03/12/24 04:22 Glucose 252 mg/dL (65-115) H 03/12/24 04:22 Calculated Osmolality 295 mOsm/kg (285-295) 03/12/24 04:22 Lactic Acid 2.1 mmol/L (0.5-2.2) 03/12/24 04:22 Calcium 9.7 mg/dL (8.5-10.5) 03/12/24 04:22 Magnesium 2.1 mg/dL (1.7-2.3) 03/12/24 04:22 Total Bilirubin 0.4 mg/dL (0.15-1.2) 03/12/24 04:22 AST 23 U/L (0-40) 03/12/24 04:22 ALT 28 U/L (0-41) 03/12/24 04:22 Alkaline Phosphatase 94 U/L (40-130) 03/12/24 04:22 Creatine Kinase 150 U/L (39-308) 03/12/24 04:22 Creatine Kinase 157 U/L (39-308) 03/12/24 04:22 Troponin T Baseline 23 ng/L (0-15) H 03/12/24 04:22 Total Protein 7.4 g/dL (6.6-8.7) 03/12/24 04:22 Albumin 4.7 g/dL (3.5-5.2) 03/12/24 04:22 Globulin 2.7 g/dL (1.3-4.6) 03/12/24 04:22 Procalcitonin 0.21 ng/mL (0-0.5) 03/12/24 04:22 Prolactin 3.34 ng/mL (4.0-15.2) L 03/12/24 04:22 Prolactin Cancelled 03/12/24 04:22 Urine Color Yellow (Yellow) 03/12/24 04:43 Urine Appearance Clear (CLEAR) 03/12/24 04:43 Urine pH 6.0 (5-7) 03/12/24 04:43 Ur Specific [place] 1.017 (1.005-1.030) 03/12/24 04:43 Urine Protein 2+ (Negative) A 03/12/24 04:43 Urine Glucose (UA) 1+ (Normal) H 03/12/24 04:43 Urine Ketones Negative (Negative) 03/12/24 04:43 Urine Blood 2+ (Negative) A 03/12/24 04:43 Urine Nitrate Negative (Negative) 03/12/24 04:43 Urine Bilirubin Negative (Negative) 03/12/24 04:43 Urine Urobilinogen 1.0 mg/dL (Negative) 03/12/24 04:43 Ur Leukocyte Esterase Negative (Negative) 03/12/24 04:43 Urine RBC 5-10 /hpf (0-2) H 03/12/24 04:43 Urine WBC 0-4 /hpf (0-5) H 03/12/24 04:43 Ur Squamous Epith Cells 0-4 /hpf (0-5) H 03/12/24 04:43 Amorphous Sediment Not Reportable 03/12/24 04:43 Urine Bacteria Trace /hpf (NONE) 03/12/24 04:43 Hyaline Casts 0-4 /lpf H 03/12/24 04:43 Urine Mucus 2+ /hpf 03/12/24 04:43 Urine Opiates Screen Negative ng/mL (Negative) 03/12/24 04:43 Ur Barbiturates Screen Negative ng/mL (Negative) 03/12/24 04:43 Ur Phencyclidine Scrn Negative ng/mL (Negative) 03/12/24 04:43 Ur Amphetamines Screen Negative ng/mL (Negative) 03/12/24 04:43 U Benzodiazepines Scrn Negative ng/mL (Negative) 03/12/24 04:43 Urine Cocaine Screen Negative ng/mL (Negative) 03/12/24 04:43 U Marijuana (THC) Screen Negative ng/mL (Negative) 03/12/24 04:43 Coronavirus (PCR) Negative (Negative) 03/12/24 04:50 Influenza A (PCR) Positive (Negative) 03/12/24 04:50 Influenza Type B (PCR) Negative (Negative) 03/12/24 04:50 RSV (PCR) Negative (Negative) 03/12/24 04:50 All radiology interpretation(s) finalized by discharge Discharge Plan Discharge Patient Disposition: Transfer to ED Clinical Impression: Acute on chronic respiratory failure with hypoxia and hypercapnia, Acute exacerbation of chronic obstructive pulmonary disease Condition: Stable Prescriptions: No Action amlodipine 10 mg tablet 10 mg PO DAILY Qty: 90 1RF aspirin 81 mg tablet,delayed release (DR/EC) 81 mg PO DAILY@18 Qty: 90 1RF budesonide 0.5 mg/2 mL suspension for nebulization 0.5 mg inhalation BID Qty: 60 4RF ipratropium-albuterol 0.5 mg-3 mg(2.5 mg base)/3 mL solution for nebulization 3 ml inhalation Q6H Qty: 180 4RF gabapentin 100 mg capsule 100 mg PO TID Qty: 90 5RF Rx Instructions: Take 1 capsule every morning and 2 capsules at bedtime Stiolto Respimat 2.5-2.5 mcg/actuation mist 2 puff inhalation DAILY Qty: 4 3RF albuterol sulfate [Ventolin HFA] 90 mcg/actuation HFA aerosol inhaler 2 puff inhalation Q6H PRN (Reason: Shortness Of Breath) Qty: 8.5 3RF Sign Out Sign Out Data: Patient Sign Out occurred on 03/12/24 at 06:05. Patient's care was discussed, and care was transferred from Efra Ochoa DO to Christophe Bobby DO. Coding Level of Care Code ED Assistance Representative for Frederick Guaman
--- NOTE | 2024-03-12 04:19 | CTR_ITS ---
PROCEDURE INFORMATION: Exam: CT Head Without Contrast Exam date and time: 03/12/2024 5:16 AM Age: 78 years old Clinical indication: Injury or trauma; Fall; Blunt trauma (contusions or hematomas); With loss of consciousness; Loss of consciousness 31-59 minutes; Additional info: Fall AMS TECHNIQUE: Imaging protocol: Computed tomography of the head without contrast. Radiation optimization: All CT scans at this facility use at least one of these dose optimization techniques: automated exposure control; mA and/or kV adjustment per patient size (includes targeted exams where dose is matched to clinical indication); or iterative reconstruction. COMPARISON: No relevant prior studies available. RADIATION DOSE METRICS: Total DLP (mGy-cm): 1228.67 FINDINGS: Brain: Cortical atrophy. Periventricular white matter changes. Left subdural hygroma. Indeterminate low-density lesion in the right temporal lobe. Cerebral ventricles: No ventriculomegaly. Paranasal sinuses: Visualized sinuses are unremarkable. No fluid levels. Mastoid air cells: Visualized mastoid air cells are well aerated. Bones: Unremarkable. No acute fracture. Soft tissues: Unremarkable. CT/CT head wo con* [id number] IMPRESSION: 1. Cortical atrophy. No hemorrhage mass effect or midline shift. 2. Indeterminate low-density lesion in the right temporal lobe. This may be related to previous injury or insult.
[2024-03-12 04:22] LABS: Arterial Blood Gas Hematocrit 41.5 % (42-52); Base Excess ABG -0.4 mmol/L (-2.0-2.0); Blood Gas Allen Test Pos; Blood Gas Sample Site Radial, right; Blood Gas Sample Type Arterial; Carboxyhemoglobin 0.4 %THgb (0.4-20.1); HCO3 ABG 31.4 mmol/L (22-26); HGB O2 Sat 98.5 % (95-100); Ionized Calcium Level - ABG 1.2 mmol/L (1.1-1.4); Methemoglobin 0.8 % (0.4-1.5); Oxygen Device NRB; Oxygen Saturation ABG > 99.1; Potassium Level - ABG 4.5 mmol/L (3.5-5.0); Total Hemoglobin 13.6 g/dL (14-18)
[2024-03-12 04:23] LABS: ABG PCO2 93.6 mmHg (35-45); ABG PH Result 7.14 (7.35-7.45)
--- NOTE | 2024-03-12 04:27 | XRR_ITS ---
PROCEDURE INFORMATION: Exam: XR Chest Exam date and time: 03/12/2024 4:29 AM Age: 78 years old Clinical indication: Injury or trauma; Fall; Blunt trauma (contusions or hematomas); Additional info: Intubation and og placement TECHNIQUE: Imaging protocol: Radiologic exam of the chest. Views: 1 view. COMPARISON: CR XR chest 1V portable [id number] 02/01/2021 12:46 AM FINDINGS: Tubes, catheters and devices: Endotracheal tube tip at the level the clavicular heads. Nasogastric tube within the stomach Lungs: Unremarkable. No consolidation. Pleural spaces: Unremarkable. No pleural effusion. No pneumothorax. Heart/Mediastinum: Unremarkable. No cardiomegaly. Bones/joints: Unremarkable. XR/XR chest 1V portable [id number] IMPRESSION: 1. Endotracheal tube at the level of the clavicular heads. This is 7.8 cm above the level of the kitty. Nasogastric tube within the stomach. 2. No acute pulmonary disease process
[2024-03-12] MEDS: succinylcholine 20 mg/mL SDV 10mL 100 MG IV (04:32)
[2024-03-12] MEDS: etomidate 2 mg/mL INJ SDV 10 mL 20 MG IVP (04:32)
--- NOTE | 2024-03-12 04:35 | CTR_ITS ---
PROCEDURE INFORMATION: Exam: CT Chest Without Contrast; Diagnostic Exam date and time: 03/12/2024 5:20 AM Age: 78 years old Clinical indication: Injury or trauma; Fall; Generalized; Blunt trauma (contusions or hematomas); Injury date: 03/12/2024; Additional info: Hypoxia extreme dyspnea fever intubated og placement TECHNIQUE: Imaging protocol: Diagnostic computed tomography of the chest without contrast. Radiation optimization: All CT scans at this facility use at least one of these dose optimization techniques: automated exposure control; mA and/or kV adjustment per patient size (includes targeted exams where dose is matched to clinical indication); or iterative reconstruction. COMPARISON: CR XR chest 1V portable [id number] 03/12/2024 4:29 AM RADIATION DOSE METRICS: Total DLP (mGy-cm): 0 FINDINGS: Lungs: Calcified nodular densities in the right lung base. Pleural spaces: Unremarkable. No pneumothorax. No pleural effusion. Heart: Unremarkable. No cardiomegaly. No pericardial effusion. Coronary arteries: Coronary artery calcification. Lymph nodes: Calcified mediastinal and hilar lymph nodes. Vasculature: Unremarkable. No aortic aneurysm. Bones/joints: Substernal thyroid. Soft tissues: Unremarkable. PROCEDURE INFORMATION: Exam: CT Abdomen And Pelvis Without Contrast Exam date and time: 03/12/2024 5:20 AM Age: 78 years old Clinical indication: Injury or trauma; Fall; Generalized; Blunt trauma (contusions or hematomas); Injury date: 03/12/2024; Additional info: Hypoxia extreme dyspnea fever intubated og placement TECHNIQUE: Imaging protocol: Computed tomography of the abdomen and pelvis without contrast. Radiation optimization: All CT scans at this facility use at least one of these dose optimization techniques: automated exposure control; mA and/or kV adjustment per patient size (includes targeted exams where dose is matched to clinical indication); or iterative reconstruction. COMPARISON: CR XR chest 1V portable [id number] 03/12/2024 4:29 AM RADIATION DOSE METRICS: Total DLP (mGy-cm): 1296.68 FINDINGS: Liver: Normal. No mass. Gallbladder and biliary ducts: Normal. No calcified stones. No ductal dilation. Pancreas: Normal. No ductal dilation. Spleen: Normal. No splenomegaly. Adrenal glands: Normal. No mass. Kidneys and ureters: 4.6 cm exophytic cyst in the right kidney. No hydronephrosis Stomach and bowel: Unremarkable. No obstruction. No mucosal thickening. Appendix: No evidence of appendicitis. Intraperitoneal space: Unremarkable. No free air. No significant fluid collection. Vasculature: Atherosclerotic change of the abdominal vasculature. Lymph nodes: Unremarkable. No enlarged lymph nodes. Urinary bladder: Spencer catheter in the urinary bladder. Reproductive: Unremarkable as visualized. Bones/joints: Unremarkable. No acute fracture. Soft tissues: Unremarkable. CT/[place] [id number] IMPRESSION: Motion artifact somewhat limits evaluation. No acute intrathoracic abnormality. IMPRESSION: No acute abdominal or pelvic abnormality COMMENTS: Consistent with the [employer]'s Incidental Findings Committee white paper (J Am Noah Radiol 2018): Any incidental renal lesion less than 1 cm or classified as too small to characterize, or any incidental cystic renal lesion characterized as simple-appearing, is likely benign. No follow-up imaging is recommended for these lesions per consensus recommendations based on imaging criteria.
[2024-03-12 04:45] LABS: Erythrocyte Sedimentation Rate 32 mm/hr (0-10)
[2024-03-12 04:47] LABS: Basophils # 0.1 10^3/uL (0.0-0.1); Basophils % 0.4 %; Eosinophils # 0.4 10^3/uL (0.0-0.8); Eosinophils % 3.3 %; Hematocrit 42.7 % (37-53); Lymphocytes # 1.5 10^3/uL (0.8-4.8); Lymphocytes % 13.6 %; Mean Corpuscular HGB Conc 31.1 g/dL (30-55); Mean Platelet Volume 10.4 fL (7.4-10.4); Monocytes # 1.4 10^3/uL (0.2-0.9); Monocytes % 12.5 %; Neutrophils # 7.91 10^3/uL (1.8-7.7); Neutrophils % 69.6 %; Nucleated Red Blood Cells % 0 %; Platelet Count 247 10^3/cmm (157-399); Red Blood Count 4.59 10^6/uL (3.85-5.65); Red Cell Distribution Width 12.9 % (12.1-15.1); White Blood Count 11.36 10^3/uL (3.29-11.43)
--- NOTE | 2024-03-12 04:49 | PC.NURSE ---
pt was intubated by the ED physician at 0433. size 8 ET 22 @ lip.
[2024-03-12 04:54] LABS: Bilirubin Urine Negative (Negative); Blood Urine 2+ (Negative); Glucose Urine UA 1+ (Normal); Ketones Urine Negative (Negative); Leukocyte Esterase Urine Negative (Negative); Nitrate Urine Negative (Negative); Protein Urine 2+ (Negative); Specific Gravity, Urine 1.017 (1.005-1.030); Urine Appearance Clear (CLEAR); Urine Color Yellow (Yellow)
[2024-03-12 04:59] LABS: Add Urine Microscopic? YES; Bacteria Urine TRACE /hpf; Squamous Epithelial Cell Urine 0-4 /hpf (0-5); UA Manual Slide Review YES; WBC Urine 0-4 /hpf (0-5)
[2024-03-12 05:00] LABS: Add Urine Culture? No; Hyaline Casts Urine 0-4 /lpf; Mucus Urine 2+ /hpf
[2024-03-12 05:00] LABS: Lactic Sepsis W/Reflex 2.1 mmol/L (0.5-2.2)
[2024-03-12 05:01] LABS: Troponin(5th) Baseline 23 ng/L (0-15)
[2024-03-12 05:02] LABS: Amphetamines Screen Urine Negative (Negative); Barbiturates Screen Urine Negative (Negative); Benzodiazepines Screen Urine Negative (Negative); Cocaine Screen Urine Negative (Negative); Opiate Screen Urine Negative (Negative); PCP Screen Urine Negative (Negative); THC Screen Urine Negative (Negative)
[2024-03-12 05:04] LABS: Prolactin 3.34 ng/mL (4.0-15.2)
[2024-03-12] MEDS: propofol 1,000 MG/100 ML INJ 10 MG IV (05:14)
[2024-03-12 05:37] LABS: Alanine Aminotransferase 28 U/L (0-41); Albumin Level 4.7 g/dL (3.5-5.2); Alkaline Phosphatase 94 U/L (40-130); Anion Gap 15.9 (5-19); Aspartate Amino Transferase 23 U/L (0-40); Blood Urea Nitrogen 15 mg/dL (8-23); Calcium 9.7 mg/dL (8.5-10.5); Carbon Dioxide 30 mmol/L (22-29); Chloride 97 mmol/L (98-107); Creatine Phosphokinase 157 U/L (39-308); Creatinine Clr Calc Pharmacy 67.7164; Globulin 2.7 g/dL (1.3-4.6); Glucose 252 mg/dL (65-115); Magnesium 2.1 mg/dL (1.7-2.3); Osmolality Calculated 295 mOsm/kg (285-295); Potassium 4.9 mmol/L (3.5-5.1); Procalcitonin 0.21 ng/mL (0-0.5); Sodium 138 mmol/L (136-145); Total Bilirubin 0.4 mg/dL (0.15-1.2); Total Protein 7.4 g/dL (6.6-8.7)
[2024-03-12 05:38] LABS: Covid PCR NEGATIVE (Negative); Influenza A POSITIVE (Negative); Influenza B NEGATIVE (Negative); Respiratory Syncytial Virus Ce NEGATIVE (Negative)
[2024-03-12] MEDS: piperacillin-tazobactam 3.375 GM in sodium chloride 0.9% (plus) 50 ML IV (06:06)
[2024-03-12] MEDS: ipratropium-albuterol 3 mL Neb INHALATION (06:27)
[2024-03-12 06:29] LABS: Reflex Lactate Order REFLEX LACTIC ORDERD
[2024-03-12] MEDS: methylPREDNISolone sod succ 125 mg/2 mL INJ IVP (06:29)
[2024-03-12] MEDS: sodium chloride 0.9% 1,000 ML 999 ML IV (06:30)
[2024-03-12 06:41] LABS: ABG PCO2 59.5 mmHg (35-45); ABG PH Result 7.33 (7.35-7.45); Alveolar-Arterial Oxygen Gradi 27.4 mmHg (5-10); Arterial Blood Gas Hematocrit 38.8 % (42-52); Base Excess ABG 4.2 mmol/L (-2.0-2.0); Blood Gas Allen Test Pos; Blood Gas Operator Identificat JDB; Blood Gas Sample Site Radial, right; Blood Gas Sample Type Arterial; Carboxyhemoglobin 0.5 %THgb (0.4-20.1); HCO3 ABG 31.6 mmol/L (22-26); HGB O2 Sat 97.7 % (95-100); Ionized Calcium Level - ABG 1.1 mmol/L (1.1-1.4); Methemoglobin 1.3 % (0.4-1.5); Oxygen Device VENT; Oxygen Saturation ABG > 99.1; PO2 FiO2 Ratio Arterial Blood 238; Potassium Level - ABG 4.6 mmol/L (3.5-5.0); Total Hemoglobin 12.7 g/dL (14-18)
--- NOTE | 2024-03-12 06:50 | ECG_ITS ---
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 Measurements Intervals [place] Rate: 83 P: 78 MS: 147 QRS: -12 QRSD: 82 T: 78 QT: 342 QTc: 403 Interpretive Statements SINUS RHYTHM POSSIBLE RIGHT VENTRICULAR CONDUCTION DELAY [RSR (QR) IN V1/V2] Compared to ECG 03/12/2024 04:19:46 Sinus tachycardia no longer present Short MS interval no longer present Left-axis deviation no longer present T-wave abnormality no longer present Electronically Signed On 03-13-2024 01:05:20 DTP OPERATOR by Mahesh Anguiano M.D. [email or web address]
--- NOTE | 2024-03-12 07:10 | PC.NURSE ---
assumed care for PT @1000
--- NOTE | 2024-03-12 07:13 | PC.NURSE ---
Report called to Hayley Villasenor RN, denied further questions.
[2024-03-12] MEDS: propofol 1,000 MG/100 ML INJ 20 MG IV (07:21)
[2024-03-12 07:37] LABS: Creatine Phosphokinase 150 U/L (39-308)
--- NOTE | 2024-03-12 07:49 | PC.NURSE ---
Report called to henrry by overnight babysitter nurse marcela
== END 2024-03-12 07:52 ==
PROVIDERS: Emergency Medicine; Emergency Provider Family Medicine
DX: J44.1 Chronic obstructive pulmonary disease with (acute) exacerbation (principal); J96.92 Respiratory failure, unspecified with hypercapnia; J96.91 Respiratory failure, unspecified with hypoxia; Z99.81 Dependence on supplemental oxygen; I10 Essential (primary) hypertension; Z87.891 Personal history of nicotine dependence; Z79.82 Long term (current) use of aspirin; Z11.52 Encounter for screening for COVID-19
CPT/HCPCS: 0241U; 31500; 36415; 36600; 51702; 70450; 71045; 71250; 74176; 80051; 80053; 80306; 81001; 82330; 82550; 82805; 83605; 83735; 84145; 84146; 84484; 85025; 85610; 85651; 93005; 94002; 94640; 94799; 96365; 96366; 96367; 96375; 99291; J0330; J2543; J2704; J2919; J3490; J7030

== ENCOUNTER 2024-09-27 11:55 | Outpatient (CLI) | payer MEDICARE, SELFPAY ==
--- NOTE | 2024-09-27 12:07 | CTR_ITS ---
PROCEDURE INFORMATION: Exam: CT Neck Without Contrast Exam date and time: 09/27/2024 12:31 PM Age: 79 years old Clinical indication: Other: Throat swelling. ; Additional info: Cervicalgia TECHNIQUE: Imaging protocol: Computed tomography of the neck without contrast. Radiation optimization: All CT scans at this facility use at least one of these dose optimization techniques: automated exposure control; mA and/or kV adjustment per patient size (includes targeted exams where dose is matched to clinical indication); or iterative reconstruction. COMPARISON: [place] [id number] 03/12/2024 5:20 AM RADIATION DOSE METRICS: Total DLP (mGy-cm): 242.78 FINDINGS: Salivary glands: Normal. Glands are normal in size. Pharynx: Unremarkable. No significant tonsillar enlargement. Larynx: Unremarkable. Epiglottis is normal. Thyroid: Markedly enlarged right lobe of the thyroid gland as seen on CT chest 03/12/2024. This measures up to 6.6 cm. Trachea: Visualized trachea is unremarkable. Lungs: 5 mm nodule left upper lobe (series 3, image 100). Emphysematous changes in visualized upper lung zones. Lymph nodes: Unremarkable. No lymphadenopathy. Bones/joints: Unremarkable. No acute fracture. Soft tissues: Asymmetry in the oropharyngeal soft tissues with effacement of the right glossopharyngeal recess. CT/CT neck wo con [id number] IMPRESSION: 1. Markedly enlarged right lobe of the thyroid gland as seen on CT chest 03/12/2024. This measures up to 6.6 cm. Consider nonurgent thyroid ultrasound. 2. Asymmetry in the oropharyngeal soft tissues with effacement of the right glossopharyngeal recess. Direct visualization recommended. 3. 5 mm nodule left upper lobe (series 3, image 100). For patients at low risk (minimal or absent history of smoking and of other known risk factors), no routine follow-up is indicated. For patients at high risk (history of smoking or of other known risk factors), consider optional CT Chest at 12 months. (Reference: Neha) REFERENCES: Neha Thomas et al. Guidelines for Management of Incidental Pulmonary Nodules Detected on CT Images: From the Fleischner Society 2017. Radiology. 2017;284(1):228-243.
== END 2024-09-27 11:56 | disposition home or self-care (01) ==
PROVIDERS: PCP Otolaryngology; Visit Provider Otolaryngology
DX: M54.2 Cervicalgia (principal); K11.5 Sialolithiasis; K11.23 Chronic sialoadenitis; E04.2 Nontoxic multinodular goiter; R93.89 Abnormal findings on diagnostic imaging of other specified body structures; R91.1 Solitary pulmonary nodule
CPT/HCPCS: 70490